=== PATIENT | female | born 1995 | race Caucasian/White ===

== ENCOUNTER 2019-03-30 17:08 | Emergency (ER) | payer SELFPAY ==
[~2019-03-30] VITALS: Ht 172.7 cm; Wt 86.2 kg
[2019-03-30 17:23] VITALS: BP 116/68
== END 2019-03-30 17:57 | disposition home or self-care (01) ==
LOC: ER 17:08
DX: S09.8XXA Other specified injuries of head, initial encounter (principal); E03.9 Hypothyroidism, unspecified; Z88.1 Allergy status to other antibiotic agents; W20.8XXA Other cause of strike by thrown, projected or falling object, initial encounter; Y93.89 Activity, other specified; Y92.89 Other specified places as the place of occurrence of the external cause; Y99.0 Civilian activity done for income or pay